=== PATIENT | female | born 1950 | race Caucasian/White ===

== ENCOUNTER 2023-12-17 05:36 | Observation (INO) ==
--- NOTE | 2023-12-06 10:50 | Anesthesiology Consultation ---
Date of Service December 06, 2023 Assessment & Plan (1) Encounter for pre-operative examination: - check BSG and CXR STAT am DOS. - Case discussed in detail with Dr. Steve who advised ordering CXR for DOS and otherwise patient is acceptable to proceed from latent TB standpoint. 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 She denied unintentional weight loss, night sweats, hemoptysis and cough. Chrissy with infection control advised nothing is needed or advised from their standpoint osito-operatively. - cardiology office visit 04/12/23: "...if she goes up stairs she can get winded...atrial fibrillation-paroxysmal in NSR today...s/p ablation with intermittent elevated HR into the 110s...s/p Watchman...continue Crestor..." - Per pension administrator on 12/03/23: No known infectious disease contacts, current infectious disease symptoms in past 10 days or COVID positive test result in the past 30 days. Chart Review Chart Review: Acceptable Risk for Surgery and Patient NOT seen in Pre Admission Testing History Surgery Operation Date: 12/17/23 07:00 Proposed Procedures p Robotic Sacral Colpopexy - Mina Contreras MD s Transvaginal Sling - Mina Contreras MD Height/Weight Height: 5 ft 2 in Weight: 81.647 kg Allergies Allergy/AdvReac Type Severity Reaction Status Date / Time isoniazid Allergy Intermediate ELEV BP Unverified 12/03/23 11:51 pantoprazole Allergy Intermediate GI SYMPTOMS Verified 12/03/23 11:51 codeine Allergy Mild RASH Unverified 12/03/23 11:51 erythromycin base Allergy Mild RASH Unverified 12/03/23 11:51 Medications Home Medications Medication Instructions Recorded Confirmed Last Taken CHOLECALCIFEROL (VITAMIN D-3) 1 tab PO DAILY ##0 01/14/15 12/03/23 Unknown Nitroglycerin (Nitrostat) 0.4 mg sublingual UD PRN Chest 01/16/15 12/03/23 Unknown Pain ##25 aspirin 81 mg tablet,delayed 81 mg PO DAILY 07/06/23 12/03/23 Unknown release citalopram 20 mg tablet 20 mg PO QAM 07/06/23 12/03/23 Unknown diltiazem HCl 180 mg 180 mg PO QAM 07/06/23 12/03/23 Unknown capsule,extended release 24 hr rosuvastatin 5 mg tablet 5 mg PO HS 07/06/23 12/03/23 Unknown sotalol 80 mg tablet 80 mg PO BID 07/06/23 12/03/23 Unknown timolol 0.5 % eye drops 1 drp ophthalmic (eye) BID 07/06/23 12/03/23 Unknown travoprost 0.004 % eye drops 1 drp ophthalmic (eye) QPM 07/06/23 12/03/23 Unknown (Travatan Z) trazodone 50 mg tablet 50 mg PO DAILY 07/06/23 12/03/23 Unknown Fish Oil 1 tab PO QAM 12/03/23 12/03/23 Unknown lansoprazole 30 mg capsule,delayed 30 mg PO DAILY 12/03/23 12/03/23 Unknown release (Prevacid) metformin 1,000 mg tablet 1,000 mg PO QAM 12/03/23 12/03/23 Unknown metformin 500 mg tablet 500 mg PO QDD 12/03/23 12/03/23 Unknown multivitamin 1 tab PO QAM 12/03/23 12/03/23 Unknown Past Medical History Medical History (Updated 12/06/23 @ 10:54 by Magali Desai PA-C) Anxiety Atrial fibrillation and flutter (2014) controlled w/ medication; follows w/ Dr Aguilar yearly Diabetes NIDDM Dyslipidemia GERD (gastroesophageal reflux disease) History of latent tuberculosis (1979) no hx of active TB, had a positive test; re-exposed in , started isoniazid in 1996 and was unable to tolerate treatment; has never had any issues History of postoperative nausea and vomiting History of transesophageal echocardiography (RADHA) x 2 Presence of Watchman left atrial appendage closure device (09/2021) placed 09/2021 for afib, follows w/ Dr Aguilar Prolapse of female pelvic organs Rosacea I contacted patient who denied unintentional weight loss, night sweats, hemoptysis and cough; stated isoniazid was started 1996 but treatment was never completed as patient did not tolerate medication and states she was advised to just have monitoring with PCP. Past Surgical History Surgical History History of arthroscopy of hip History of cardiac radiofrequency ablation (2016) History of total bilateral knee replacement Hx of bilateral cataract extraction Hx of cholecystectomy Hx of colonoscopy Hx of dilation and curettage Hx of eye surgery left, laser Hx of hysterectomy Hx of tonsillectomy Social History Smoking Status: Never smoker Do You Dip or Chew Tobacco: No Hx Alcohol Use: Yes alcohol intake frequency: a few times a week Hx Substance Use: No substance use type: does not use Testing Laboratory Results 12/02/23 WBC: 6.3 H/H: 12/39 PLATELETS: 193,000 SODIUM: 139 POTASSIUM: 4.9 CHLORIDE: 103 CO2: 26 BUN: 15 CREATININE: 0.9 GLUCOSE: 111 Electrocardiogram Date: 12/02/23 NSR, rate 63 bpm Echocardiogram Date: 11/04/22 EF 50-55% Normal segmental LV function [place] closure device well-seated Mild mitral regurgitation
--- NOTE | 2023-12-17 05:25 | History & Physical Report ---
Date of Service December 17, 2023 Assessment & Plan (1) Vaginal vault prolapse, posthysterectomy: Plan: DOMITILA Rectocele Vaginal vault prolapse, posthysterectomy Cystocele, midline We reviewed therapy options including Kegel exercises/Physical therapy vs pe ssary therapy vs surgery. Mrs. Adrian prefers to have surgery. I further reviewed transvaginal surgery (sacrospinous ligament suspension, A&P repair, sling) vs robotic surgery (robotic sacral colpopexy, sling) Risks of surgery including infection, bleeding, injury, pain, mesh exposure, urinary retention were discussed. All questions answered. She would like to proceed with robotic sacral colpopexy, posterior colporrhaphy, sling, and cystoscopy. Patient also desires removal of tubes and ovaries. Informed consent confirmed. Present on Admission?: Yes Admission and Anticipated Discharge Date Admission Date: 12/17/2023 Anticipated date of discharge: 12/18/23 History of Present Illness Chief Complaint: Vaginal vault prolapse, cystocele, rectocele, DOMITILA Primary Care Provider: Sergey Rincon Jayleen Adrian is a 72 year old female P 2 with recurrent prolapse. Jayleen Adrian complains of feeling a bulge starting in December 2022. She also complains of mixed urinary incontinence. She has frequency and urgency every few hours. She awakens 2-3 times a night to void. She has urge incontinence if she can't reach the bathroom in time. She also has DOMITILA with coughing and sneezing. Urinary: Leakage: mixed Has leakage daily Wears pads: yes She has occasional sense of incomplete bladder emptying. Prior/current treatment include: Vaginal hysterectomy, A&P repair, pubovaginal sling with mesh UTI: denies Voiding detail: Daytime frequency: every 2 hours Urgency yes Nocturia:2-3 times Hesitancy no Straining no Hematuria no Postvoid dribbling no Postvoid urgency no Manual reduction no Prolapse: She admits a palpable bulge. Her bulge symptoms have worsened over the last 8 months Prior/ current treatments include vaginal hysterectomy, A&P repair, pubovaginal sling with mesh in 2002 GI: Bowel habits: normal bowel movement She denies fecal incontinence. Prior/ current treatments include: none Allergies Allergy/AdvReac Type Severity Reaction Status Date / Time isoniazid Allergy Intermediate ELEV BP Unverified 12/17/23 06:35 pantoprazole Allergy Intermediate GI SYMPTOMS Verified 12/17/23 06:35 codeine Allergy Mild RASH Unverified 12/17/23 06:35 erythromycin base Allergy Mild RASH Unverified 12/17/23 06:35 Home Medications Medication Instructions Recorded Confirmed Type CHOLECALCIFEROL (VITAMIN D-3) 1 tab PO DAILY ##0 01/14/15 12/17/23 History Nitroglycerin (Nitrostat) 0.4 mg sublingual UD PRN Chest 01/16/15 12/17/23 Rx Pain ##25 aspirin 81 mg tablet,delayed 81 mg PO DAILY 07/06/23 12/17/23 History release citalopram 20 mg tablet (Celexa) 20 mg PO QAM 07/06/23 12/17/23 History diltiazem HCl 180 mg 180 mg PO QAM 07/06/23 12/17/23 History capsule,extended release 24 hr (Cardizem CD) rosuvastatin 5 mg tablet (Crestor) 5 mg PO HS 07/06/23 12/17/23 History sotalol 80 mg tablet (Betapace) 80 mg PO BID 07/06/23 12/17/23 History timolol 0.5 % eye drops 1 drp ophthalmic (eye) BID 07/06/23 12/17/23 History travoprost 0.004 % eye drops 1 drp ophthalmic (eye) QPM 07/06/23 12/17/23 History (Travatan Z) trazodone 50 mg tablet 50 mg PO DAILY 07/06/23 12/17/23 History Fish Oil 1 tab PO QAM 12/03/23 12/17/23 History lansoprazole 30 mg capsule,delayed 30 mg PO DAILY 12/03/23 12/17/23 History release (Prevacid) metformin 1,000 mg tablet 1,000 mg PO QAM 12/03/23 12/17/23 History metformin 500 mg tablet 500 mg PO QDD 12/03/23 12/17/23 History multivitamin 1 tab PO QAM 12/03/23 12/17/23 History Past Med/Surg History Problem List Vaginal vault prolapse, posthysterectomy Encounter for pre-operative examination Urinary incontinence Prolapse of female pelvic organs History of cholecystectomy (Chronic) History of tonsillectomy and adenoidectomy (Chronic) Rosacea (Chronic) Dyslipidemia (Chronic) Atrial flutter (Acute) Generalized anxiety disorder (Chronic) Diaphragmatic hernia (Chronic) GERD (gastroesophageal reflux disease) (Chronic) Chronic leg pain (Chronic) Medical History History of transesophageal echocardiography (RADHA) x 2 Atrial fibrillation and flutter (2014) controlled w/ medication; follows w/ Dr Aguilar yearly Dyslipidemia Prolapse of female pelvic organs Diabetes NIDDM History of postoperative nausea and vomiting Anxiety GERD (gastroesophageal reflux disease) Presence of Watchman left atrial appendage closure device (09/2021) placed 09/2021 for afib, follows w/ Dr Jeff Freedman History of latent tuberculosis (1979) no hx of active TB, had a positive test; re-exposed in , started isoniazid in 1996 and was unable to tolerate treatment; has never had any issues Surgical History Hx of tonsillectomy Hx of dilation and curettage Hx of cholecystectomy Hx of hysterectomy Hx of bilateral cataract extraction Hx of eye surgery left, laser History of arthroscopy of hip History of total bilateral knee replacement History of cardiac radiofrequency ablation (2015) Hx of colonoscopy Social History Smoking Status: Never smoker Second Hand Exposure: No; Do You Dip or Chew Tobacco: No; Tobacco Cessation Education Requested by Patient: No Hx Alcohol Use: Yes Hx Substance Use: No Preferred Language: Northern Irish Communication Ability: Effective Registration Scheduling Specialist Required: No Beliefs That Will Affect Care: None Current Living Situation: Spouse Other Information That Helps Us Care for You: No Feels Safe at Home: Yes Safety Concerns: Feels Safe At This Time Assistive Devices: Contacts and Glasses Review of Systems Review of Systems: All systems reviewed & are unremarkable except as noted in HPI & below Physical Exam Constitutional: WD/WN, vitals as above Eyes: PERRL, conjunctivae normal, anicteric sclerae Neck: trachea midline, no thyromegaly Respiratory: normal respiratory effort Cardiovascular: Rate/Rhythm: regular rate Gastrointestinal (Abdomen): normal bowel sounds, soft, nontender, no hepatosplenomegaly Musculoskeletal: no cyanosis or clubbing, extremities motor strength 5/5 Skin: no rashes, warm and dry Psychiatric: A+Ox3, euthymic affect Code Status & VTE Plan VTE Prophylaxis Plan VTE Prophylaxis will be ordered: Yes
--- NOTE | 2023-12-17 06:45 | XRay Report ---
XR chest 2V PA/lateral HISTORY: 73 years-old Female preop preoperative exam COMPARISON: 02/04/2015 TECHNIQUE: PA and lateral views of the chest FINDINGS: Cardiomediastinal silhouettes are within normal limits. Small hernia. A device projects over the left atrium suggestive of an exclusion device. No pneumothorax, pleural effusion or airspace consolidatio n. Cholecystectomy. Bones appear intact. IMPRESSION: No acute process. ACT 112: Negative or not required by law. The above report was generated using voice recognition software. It may contain grammatical, syntax o r spelling errors. Electronically signed by: Patrick Disla M.D. 12/17/2023 6:43 AM
[2023-12-17] MEDS ORDERED: fentaNYL citrate PF 100 MCG/2 ML VIAL ONE (06:47)
[2023-12-17] MEDS ORDERED: SUGAMMADEX SODIUM 200 MG/2 ML VIAL IV ONE (06:47)
[2023-12-17] MEDS ORDERED: MIDAZOLAM HCL 1 MG/ML 2ML VIAL ONE (06:48)
[2023-12-17] MEDS ORDERED: LIDOCAINE 2% 2 ML VIAL/AMP(20MG/ML) INFIL ONE (06:49)
[2023-12-17] MEDS ORDERED: ROCURONIUM BROMIDE 10 MG/ML 5 ML VIAL IV ONE ×2 (06:49→08:03)
[2023-12-17] MEDS ORDERED: DEXAMETHASONE SOD INJ 4 MG/ML VIAL ONE (06:49)
[2023-12-17] MEDS ORDERED: diphenhydrAMINE 50 MG/ML VIAL ONE (06:49)
[2023-12-17] MEDS ORDERED: KETOROLAC 30 MG/ML VIAL ONE (06:49)
[2023-12-17] MEDS ORDERED: PROPOFOL IV EMULSION 10 MG/ML 20 ML VIAL IV ONE (06:49)
[2023-12-17] MEDS ORDERED: ONDANSETRON INJ 2 MG/ML 2 ML VIAL ONE (06:49)
[2023-12-17] MEDS ORDERED: ACETAMINOPHEN 1000 MG/100 ML IV IV ONE (06:50)
[2023-12-17] MEDS: LR 15ML/HR IV SCH (06:55)
[2023-12-17] MEDS: metroNIDAZOLE 500 MG/100 ML BAG IV SCH (07:04)
[2023-12-17] MEDS: ceFAZolin 2000MG 2,000 MG/15 ML SYR IV SCH (07:30)
[2023-12-17] MEDS ORDERED: ePHEDrine sulfate 50 MG/5 ML SYR ONE (08:07)
[2023-12-17] MEDS ORDERED: HYDROmorphone INJ 1 MG/ML SYRINGE IV PRN (08:45)
[2023-12-17] MEDS ORDERED: fentaNYL citrate PF 100 MCG/2 ML VIAL IV PRN (08:45)
[2023-12-17] MEDS ORDERED: ONDANSETRON INJ 2 MG/ML 2 ML VIAL IV PRN ×2 (08:45→10:05)
[2023-12-17] MEDS ORDERED: ATROPINE SULFATE 0.1 MG/ML 10ML SYR IV PRN (08:45)
[2023-12-17] MEDS ORDERED: PROMETHAZINE HCL 6.25 MG in SODIUM CHLORIDE 0.9% 50 ML IV PRN (08:45)
[2023-12-17] MEDS ORDERED: ePHEDrine sulfate 50 MG/ML AMP IV PRN (08:45)
[2023-12-17] MEDS: BUPIVACAINE 0.5 % 5 MG/1 ML MPF 30ML VIAL ONE (09:51)
[2023-12-17] MEDS: FLOSEAL HEMOSTATIC MATRIX 10ML TOP ONE (09:51)
[2023-12-17] MEDS: PREMARIN VAG CRM 14 APPLN/30 GM TUBE ONE (09:52)
[2023-12-17] MEDS ORDERED: IBUPROFEN 600 MG TAB PO PRN (10:05)
[2023-12-17] MEDS: LIDOCAINE 1%/EPINEPHRINE 1:100,000 50 ML VIAL ONE (10:11)
--- NOTE | 2023-12-17 10:24 | Operative Report ---
Post Operative Report Pre & Post Diagnosis Operation Date: 12/17/23 07:30 Pre-Op Diagnosis: Vaginal Vault Prolapse, Cystocele Lateral, Rectocele, Post-Op Diagnosis: Vagina Vault Prolapse, Cystocele Lateral, Rectocele, I identified the patient and participated in the time-out.: Yes Procedure Operation Date: 12/17/23 07:30 Actual Procedures p Robotic Assisted Sacral Colpopexy, Cystoscopy, Removal of bilateral tubes and bilatera ovaries(Not Applicable) - Mina Contreras MD Surgeon Mina Contreras MD Build Master Linda Morrissey PA-C Estimated Blood Loss 75 Findings Consistent with Post-Op Diagnosis grade 2 cystocele, vaginal vault prolapse, rectocele. Atrophic ovaries. Cystoscopy with trabeculations, no lesions, excellent efflux of ureters bilaterally. Fluids crystalloid Specimens tubes and ovaries bilaterally Drains none Anesthesia Type General Complications none Disposition Accompanied Patient To Recovery: Yes Disposition: Recovery Room Indications Recurrent and symptomatic vaginal prolapse Description of Procedure The patient was identified and the procedure verified. General anesthesia was given by anesthesia service The patient was placed in dorsal lithotomy position, prepped and draped in the usual manner. She was identified, and her procedure was also identified. A Brambila catheter was placed into the bladder and the bladder was drained. A bulb syringe attached to a Hulka tenaculum was placed in the vagina. At the umbilicus, an 8 mm incision was made. An 8 mm robotic trocar with optiview was advanced through the incision, fascia, peritoneum into the abdominal cavity under direct view.. CO2 gas was insufflated into the abdomen and inspection revealed no adhesions. On the left two 8 mm trocars were placed under direct visualization. On the right two 8 mm trocars were placed under direct visualization. The patient was placed in Trendelenburg position to allow the small bowel to retract out of the pelvis. The robot was docked. The ureters were identified bilaterally. The ovaries and tubes were well visualized. The IP ligaments were grasped, vessel sealed and transected bilaterally. The tubes and ovaries were sent to pathology as specimen. Hemostasis was confirmed. The bladder was dissected off the anterior vaginal wall. The rectum was dissected off the posterior vaginal wall. The peritoneum over the sacral promontory was incised and extended along the right osito-colic gutter with excellent visualization of the right ureter and rectum. Mild oozing over the sacrum was controlled with Artis-seal. The Y mesh was then secured to the anterior and posterior vaginal whitehead with 2-0 V-Lock suture anteriorly and posteriorly. The tail end of the graft was secured to the anterior longitudinal ligament below the sacral promontory with 2 interrupted sutures of 2-0 CV-0. The excess mesh was trimmed and removed. The peritoneum was closed over the mesh with 2-0 V-Lock suture in a running fashion. Excellent hemostasis was confirmed. The robot was undocked. The CO2 gas was a llowed to recede and the trocars were removed under direct visualization. The skin incision were closed with 4-0 Monocryl in a subcuticular fashion and dressed with surgical glue. Attention was focused vaginally. Excellent support of the anterior, apical, and posterior vaginal whitehead was confirmed. The Brambila catheter was then removed from the bladder. The urethra and the bladder was scoped with 250 ml of irrigation fluid. Both were within normal limits. Excellent efflux of ureters were demonstrated bilaterally. The bladder was filled with 350 ml of irrigation fluid, the scope was removed. Crede maneuver was performed and and DOMITILA was not demonstrated. The Brambila catheter was placed, estrogen cream applied to the vagina, and vaginal packing was applied. All sponge lap and needle counts were correct. The patient tolerated the procedure well and left the Operating Room in good condition. I attest to the content of the Intraoperative Record and any orders documented therein. Any exceptions are noted below. No qualified resident was available. Linda Morrissey PA-C was required to assist during the procedure for patient positioning, draping, robot docking and instrument exchange, retraction, suction and irrigation, and wound closure.
--- OUTSIDE RECORDS SUMMARY | 2023-12-17 10:47 | External Medical Summary ---
Author Name Unknown Address Unknown Organization [id number] [address] [place] [id number] Laboratory Report Ordering Provider Test Date Status BHUPENDRA REDMAN 12/02/2023 10:45:51 Final Observation Date Value Abnormality Reference (Units ) Status BUN 12/02/2023 10:45:51 15 6-20 (mg/dL) Final Creatinine 12/02/2023 10:45:51 0.9 0.5-1.0 (mg/dL) Final Glomerular filtration rate/1.73 sq M.predicted [Volume Rate/Area] in Serum, Plasma or Blood by Creatinine-based formula (CKD-EPI) 12/02/2023 10:45:51 65 >=60 (mL/min) Final eGFR is calculated based on the CKD-EPI 2020 equation. Sodium 12/02/2023 10:45:51 139 135-146 (m mol/L) Final Potassium 12/02/2023 10:45:51 4.9 3.5-5.1 (m mol/L) Final Cl 12/02/2023 10:45:51 103 98-107 (mm ol/L) Final CO2 12/02/2023 10:45:51 26 22-32 (mmo l/L) Final Anion gap 12/02/2023 10:45:51 10 7-15 (mmol /L) Final Glucose 12/02/2023 10:45:51 111 70-120 (mg /dL) Final Calcium 12/02/2023 10:45:51 9.6 8.4-10.2 ( mg/dL) Final Performing Location [facility] [address] [place] [id number]
--- OUTSIDE RECORDS SUMMARY | 2023-12-17 10:47 | External Medical Summary | Summary of Care ---
Author Name Unknown Organization [facility] Address [address] [facility] [place] [address] Phone [phone] Care Team Providers Care Director Of Strategic Communications Name Role Phone Jodi Perla PA-C Primary Care Provid er Encounter Details Date Type Department Care Team (Late st Contact Info) Description 12/02/2023 Orders Only Urogynecology [facility] [address] [place] [address] Linda Morrissey PA-C [address] [place] [address] Preop testing* Allergies Active Allergy Reactions Criticality Noted Date Comments Erythromycin 11/18/1999 hives Isoniazid 11/18/1999 hypertension Morphine And Codeine 11/18/1999 itching Pantoprazole Sodium Sesquihydrate Other (Please comment) Medium 05/12/2007 Elevated BP documented as of this encounter (statuses as of 12/02/2023) Medications Medication Sig Dispensed Refills Start Date End Date Status MULTIVITAL PO TABS 1 daily Active FISH OIL CONCENTRATE 1000 MG PO CAPS 1200 mg daily Active VITAMIN D 1000 UNIT PO CAPSIndications:Disor get of bone and cartilage 1 capsule daily 0 07/09/2010 Active CALCIUM 600/VITAMIN D 600-400 MG-UNIT PO TABS 1 a day Active nitroglycerin (NITROSTAT) 0.4 MG SUBLIndications:Typic al atrial flutter (HCC) Place 1 Tab under the tongue as needed for Pain, Chest. May repeat 3 times. If chest pain continues, call 911. 25 Tab 5 01/23/2015 Active apixaban (ELIQUIS) 5 MG TabletIndications:Typ ical atrial flutter (HCC) Take 1 Tab by mouth 2 times a day. 180 Tab 1 01/23/2015 Active Additional Information Patient not taking.Reported on 09/23/[address] (PREVACID) 30 MG CPDR Take 1 Cap by mouth daily. 90 Cap 1 01/29/2015 Active sotalol (BETAPACE) 80 MG TabletIndications:Par oxysmal atrial fibrillation (HCC) Take 1 Tab by mouth 2 times a day. 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 30 Tab 0 02/27/2015 Active Additional Information Patient not taking.Reported on 09/23/2023 Aspirin 81 MG Oral Tablet Chewable (Aspirin 81) Take 1 Tablet by mouth in the morning. Active metFORMIN HCl 500 MG Oral Tablet (Glucophage) Take 1 Tablet by mouth 2 times a day with morning and evening meals. 1 tab with breakfast, 2 tabs with dinner Active Rosuvastatin Calcium 5 MG Oral Tablet (Crestor) Take 1 Tablet by mouth in the morning. Active dilTIAZem HCl ER Coated Beads 180 MG Oral Capsule Extended Release 24 Hour (Cardizem CD) Take 1 Capsule by mouth in the morning. Active Citalopram Hydrobromide 20 MG Oral Tablet (CeleXA) Take 1 Tablet by mouth in the morning. Active traZODone HCl 50 MG Oral Tablet (Desyrel) Take 1 Tablet by mouth at bedtime. Active Magnesium 250 MG Oral Tablet Take 1 Tablet by mouth in the morning. Active Travoprost (GERA Free) 0.004 % Ophthalmic Solution (Travatan Z) 1 Drop at bedtime. Active Timolol Maleate (Once-Daily) 0.5 % Ophthalmic Solution (Istalol) 1 Drop in the morning. Active documented as of this encounter (statuses as of 12/02/2023) Active Problems Problem Noted Date Diagnosed Date Paroxysmal atrial fibrillation 02/06/2015 Advance directive in chart 06/07/2013 Slow transit constipation 08/09/2012 Anxiety state 01/20/2012 Muscle cramp, nocturnal 07/15/2011 Rosacea 01/14/2011 Dyslipidemia, goal LDL below 130 06/04/2009 Impaired fasting glucose 12/12/2007 Urge incontinence 02/17/2007 Female stress incontinence 08/05/2006 ADVANCE DIRECTIVE INFORMATION 05/06/2005 Overview: Yes, Patient instructed to provide copy of advance directive for provider to review and to be scanned into Electronic Medical Record BENIGN PARXYSMAL VERTIGO 08/10/2002 Esophageal reflux Abnormal results of liver function studies Disorder of bone and cartilage Rectocele documented as of this encounter (statuses as of 12/02/2023) Resolved Problems Problem Noted Date Diagnosed Date Resolved Date Typical atrial flutter 01/23/201502/06 Dyslipidemia, goal to be determined 02/21/2009 06/04/2009 Overview: Per Lipid Taxonomy. Hematuria 08/30/2006 06/21/2007 Overview: ICD-10 update of inactive term Urge incontinence 08/05/2006 06/21/2007 Urgency of urination 08/05/2006 008 Urinary frequency 08/05/2006 05/12/2007 Urinary frequency 12/28/2002 05/12/2007 Diaphragmatic hernia 008 GENERALIZED ANXIETY DIS 10/2007 Nonspecific reaction to tube rculin skin test without active tuberculosis 06/21/2007 Overview: ICD-10 update of inactive term Peptic ulcer 06/21/2007 Dysmenorrhea 05/12/2007 PLANTAR FIBROMATOSIS 008 Family history of colon cancer 06/21/2007 History of peptic ulcer disease 06/21/2007 Overview: ICD-10 update of inactive term Mixed dyslipidemia 9 Overview: Per Lipid Taxonomy. Other iron deficiency anemia 11/16/2008 Overview: ICD-10 update of inactive term documented as of this encounter (statuses as of 12/02/2023) Immunizations Name Administration Dates Next Due COVID-19 mRNA, LNP-s, No Pre serve, 2-Dose Series (Modlar) 10/27/2021 COVID-19, MRNA-LNP, 23-24, P F, 30 MCG/0.3 mL, 12 YRS AND ABOVE, IM (PFIZER-Comirnaty) 12/24/2022 H1N1 2009 Influenza, IM 03/20/2009 Season Influenza, Quad, PF, Adjuvanted, 65+ Yrs, IM (FLUAD) 12/24/2022 Seasonal Influenza, Quadriva lent Hd (Fluzone Hd) 12/18/2021 Seasonal Influenza, Trivalen t, (IIV3), with Preserv, (Fluzone) 01/16/2015,12/20/2013,01/03/2013,2011,01/14/2011,01/01/2010,01/13/2009,1 03/21/2005 TDAP, Age 7 and older, IM (Adacel) 11/10/2007 Varicella Zoster Vaccine (Adult) 10/02/2013 documented as of this encounter Social History Tobacco Use Types Packs/Day Years Used Date Smoking Tobacco: Never Smokeless Tobacco: Never Alcohol Use Standard Drinks/Week Comments Yes 0 (1 standard drink = 0.6 oz pur e alcohol) occ.wine Sex and Gender Information Value Date Recorded Sex Assigned at Not on file Gender Identity Not on file Sexual Orientation Not on file Job Start Date Occupation Industry Not on file Not on file Not on file documented as of this encounter Plan of Treatment Upcoming Encounters Date Type Department Care Team (Late st Contact Info) Description 12/29/2023 8:00 AM EDT Telemedicine Urogynecology [facility] [address] [place] [address] Mina Contreras MD [address] [place] [address] 02/02/2024 11:20 AM EST Office Visit Urogynecology [facility] [address] [place] [address] Mina Contreras MD [address] [place] [address] Scheduled Orders Name Type Priority Associated Diagnoses Orde r Schedule EKG EKG Routine Preop testing 1 Occurrences starting 12/02/2023 until 01/01/2024 Health Maintenance Due Date Last Done Comments Cologuard 11/21/1996 Colonoscopy 11/21/1996 Sigmoidoscopy 11/21/1996 Colorectal Cancer Screening 11/02/2003 Fecal Occult Blood Test 11/02/2003 11/02/19 03, 11/23/2001, 04/29/2000 Zoster Vaccines (2 of 3) 11/27/2013 10/02/2013 Depression Screening 07/04/2015 07/03/2014 Mammogram 01/26/2016 01/25/2015, 09/13, 08/09/2012, Additional history exists Pneumococcal Vaccine: 65+ Years (1 of 1 - PCV) 11/21/2016 DTap/Tdap Vaccines (2 - Td or Tdap) 11/09/2017 11/10/2007, 09/04/1997 DXA Scan 09/10/2019 09/09/2009, 04/0 09/2007, 05/29/2005 Lipid Panel 01/09/2020 01/08/2015, 06/14, 02/26/2014, Additional history exists COVID-19 Vaccine ( season) 2023 12/24/2022, 10/27/2021, 06/13/2020, Additional history exists Influenza Vaccine (FLU shot) (#1) 2023 12/24/2022, 12/18/2021, 12/21/2018, Additional history exists Hepatitis B Vaccine Completed 03/06/1998, 10/03/1997, 09/04/1997 HPV (Gardasil) Vaccine Aged Out No lo nger eligible based on patient's age to complete this topic MENINGOCOCCAL (MENACTRA/MENVEO) Aged Out No longer eligible based on patient's age to complete this topic documented as of this encounter Medical Devices Not on filedocumented as of this encounter Visit Diagnoses Diagnosis Preop testing- Primary Preoperative examination, unspecified documented in this encounter Care Teams Director Of Strategic Communications Relationship Specialty Start Date End Date Jodi Perla PA-C [address] [place], [place] [address] [address] PCP - General Physician Shock Absorption Floor Layer 05/23/23 documented as of this encounter
--- OUTSIDE RECORDS SUMMARY | 2023-12-17 10:47 | External Medical Summary | Summary of Care ---
Author Name Unknown Organization [facility] Address [address] [place] [address] Phone [phone] Care Team Providers Care Guardian Ad Litem Name Role Phone Jodi Perla PA-C Primary Care Provid er Reason for Visit * Reason Onset Date Comments Referral 09/25/2023 pt called on sat 7/12 to schedule the order her doctor placed. pt stated this shourd be for a 3-hour surgery and not just to connect with urology. she will call back on 09/26 Encounter Details Date Type Department Care Team (Late st Contact Info) Description 09/25/2023 Telephone Dermatology [facility] [address] [place] [address] Services, Scheduling [address] [place] [address] Referral (pt called on sat 7/12 to schedul... Allergies Active Allergy Reactions Criticality Noted Date Comments Erythromycin 11/18/1999 hives Isoniazid 11/18/1999 hypertension Morphine And Codeine 11/18/1999 itching Pantoprazole Sodium Sesquihydrate Other (Please comment) Medium 05/12/2007 Elevated BP documented as of this encounter (statuses as of 09/25/2023) Medications Medication Sig Dispensed Refills Start Date [...] as of this encounter (statuses as of 09/25/2023) Active Problems Problem Noted Date Diagnosed Date [...] as of this encounter (statuses as of 09/25/2023) Resolved Problems Problem Noted Date Diagnosed Date [...] as of this encounter (statuses as of 09/25/2023) Immunizations Name Administration Dates Next Due COVID-19 mRNA, LNP-s, No Pre serve, 2-Dose Series (Pfizer) 10/27/2021 COVID-19, MRNA-LNP, 23-24, P F, 30 MCG/0.3 mL, 12 YRS AND ABOVE, IM (PFIZER-Comirnaty) 12/24/2022 H1N1 2009 Influenza, IM 03/20/2009 Season Influenza, Quad, PF, Adjuvanted, 65+ Yrs, IM (FLUAD) 12/24/2022 Seasonal Influenza, Quadriva lent Hd (Fluzone Hd) 12/18/2021 Seasonal Influenza, Split, I IV3, With Preserve, Inj 01/16/2015,12/20/2013,01/03/2013,2011,01/14/2011,01/01/2010,01/13/2009,1 03/21/2005 TDAP, Age 7 and older, [...] on file documented as of this encounter Miscellaneous Notes * Telephone Encounter - Romario Oliveira OSA - 09/25/2023 12:14 PM EDT cali Kimball called on sat 09/23 to schedule the order her doctor placed. pt stated this shourd be for a 3-hour surgery and not just to connect with urology. she will call back on mon 09/26 Pt can be reached at [phone] Thank you, CRUZITO Ballard documented in this encounter Plan of Treatment Health Maintenance Due Date Last Done Comments Cologuard 11/21/1996 Colonoscopy 11/21/1996 Sigmoidoscopy 11/21/1996 Colorectal Cancer Screening 11/02/2003 Fecal Occult Blood Test 11/02/2003 11/02/19 03, 11/23/2001, 04/29/2000 Zoster Vaccines (2 of 3) 11/27/2013 10/02/2013 Depression Screening 07/04/2015 07/03/2014 Mammogram 01/26/2016 01/25/2015, 09/13, 08/09/2012, Additional history exists Pneumococcal Vaccine: 65+ Years (1 of 1 - PCV) 11/21/2016 DTaP,Tdap,and Td Vaccines (2 - Td or Tdap) 11/09/2017 11/10/2007, 09/04/1997 DXA Scan 09/10/2019 09/09/2009, 09/2007, 05/29/2005 Lipid Panel 01/09/2020 01/08/2015, 06/14, [...] Not on filedocumented as of this encounter Care Teams Guardian Ad Litem Relationship Specialty Start Date End Date Jodi Perla PA-C [address] [place] [address] Drive [place] [address] PCP - General Physician Electrical Systems Drafter 05/23/23 documented as of this encounter
--- OUTSIDE RECORDS SUMMARY | 2023-12-17 10:47 | External Medical Summary | Summary of Care ---
Author Name Unknown Organization [facility] Address [address] [facility] [place] [address] Phone [phone] Care Team Providers Care Silicator Name Role Phone Jodi Perla PA-C Primary Care Provid er Reason for Visit * Reason Comments Outpatient Testing Encounter Details Date Type Department Care Team (Late st Contact Info) Description 12/02/2023 10:30 AM EDT Laboratory Laboratory, [facility] [id number] [facility] [address] [facility] [place] [address] Pre-op testing Allergies Active Allergy Reactions Criticality Noted Date [...] 05/12/2007 Diaphragmatic hernia 008 GENERALIZED ANXIETY DIS 0410/2007 Nonspecific reaction to tube rculin skin test [...] Description 12/29/2023 8:00 AM EDT Telemedicine [facility] [address] [place] [address] Mina Contreras MD [address] [place] [address] 02/02/2024 11:20 AM EST Office [facility] [address] [place] [address] Mina Contreras MD [address] [place] [address] Pending Results Name Type Priority Associated Diagnoses Date /Time CBC Lab Routine Pre-op testing 12/02/2023 10:45 AM EDT BASIC METABOLIC PANEL Lab Routine Pre-op testing 12/02/2023 10:45 AM EDT Health Maintenance Due Date Last Done Comments [...] 11/09/2017 11/10/2007, 09/04/1997 DXA Scan 09/10/2019 09/09/2009, 04/09/2007, 05/29/2005 Lipid Panel 01/09/2020 01/08/2015, 2 10/2014, 02/26/2014, Additional history exists COVID-19 Vaccine ( [...] as of this encounter Visit Diagnoses Diagnosis Pre-op testing Preoperative examination, unspecified documented in this encounter Care Teams Silicator Relationship Specialty Start Date End Date Jodi Perla PA-C [address] [place], [place] [address] [address] PCP - General Physician Pocket Creaser 05/23/23 documented as of this encounter
--- OUTSIDE RECORDS SUMMARY | 2023-12-17 10:47 | External Medical Summary | Summary of Care ---
Author Name Unknown Organization [facility] Address [address] [facility] [place] [address] Phone [phone] Care Team Providers Care Clam Grader Name Role Phone Jodi Perla PA-C Primary Care Provid er Reason for Visit * Reason Onset Date Comments Referral 09/29/2023 Encounter Details Date Type Department Care Team (Late st Contact Info) Description 09/29/2023 Telephone Urology Samia Hanks [address] [place] [address] [place] Braun MD [address] [place] [address] Referral Allergies Active Allergy Reactions Criticality Noted Date Comments Erythromycin 11/18/1999 hives Isoniazid 11/18/1999 hypertension Morphine And Codeine 11/18/1999 itching Pantoprazole Sodium Sesquihydrate Other (Please comment) Medium 05/12/2007 Elevated BP documented as of this encounter (statuses as of 09/29/2023) Medications Medication Sig Dispensed Refills Start Date [...] as of this encounter (statuses as of 09/29/2023) Active Problems Problem Noted Date Diagnosed Date [...] as of this encounter (statuses as of 09/29/2023) Resolved Problems Problem Noted Date Diagnosed Date [...] as of this encounter (statuses as of 09/29/2023) Immunizations Name Administration Dates Next Due COVID-19 [...] encounter Miscellaneous Notes * Telephone Encounter - Sonia Gutierrez OSA - 09/29/2023 12:31 PM EDT LMOM for patient to call back to see if appointment is needed for urology? Patient was seen by Uro/Maintenance Associate, not sure if she needed to be seen by urology as well? documented in this encounter Plan of Treatment [...] filedocumented as of this encounter Care Teams Clam Grader Relationship Specialty Start Date End Date Jodi Perla PA-C [address] [place] [address] PCP - General Physician Online Media Director 05/23/23 documented as of this encounter
--- OUTSIDE RECORDS SUMMARY | 2023-12-17 10:47 | External Medical Summary ---
Author Name Unknown Address Unknown Organization [facility] [address] [place] [address] Laboratory Report Ordering Provider Test Date Status BHUPENDRA REDMAN 12/02/2023 10:45:51 Final Observation Date Value Abnormality Reference (Units ) Status WBC, Total 12/02/2023 10:45:51 6.33 4.00-10.8 0 (K/uL) Final RBC 12/02/2023 10:45:51 4.50 3.85-5.15 (M/uL) Final Hemoglobin 12/02/2023 10:45:51 12.9 12.0-15.3 (g/dL) Final HCT 12/02/2023 10:45:51 39.7 36.0-45.2 (%) Final MCV 12/02/2023 10:45:51 88.2 81.5-97.5 (fL) Final MCH 12/02/2023 10:45:51 28.7 27.0-34.0 (pg) Final MCHC 12/02/2023 10:45:51 32.5 32.0-36.0 (g/dL) Final RDW 12/02/2023 10:45:51 14.1 11.5-15.5 (%) Final Platelets 12/02/2023 10:45:51 193 140-400 (K /uL) Final MPV 12/02/2023 10:45:51 11.0 6.6-11.1 ( fL) Final Performing Location [facility] [address] [place] [address]
--- OUTSIDE RECORDS SUMMARY | 2023-12-17 10:47 | External Medical Summary | Summary of Care ---
Author Name Unknown Organization [facility] [address] [place] [address] Phone [phone] Care Team Providers Care Senior Infrastructure Engineer Name Role Phone Jodi Perla PA-C Primary Care Provid er Reason for Visit * Reason Onset Date Comments Advice 12/02/2023 Encounter Details Date Type Department Care Team (Late st Contact Info) Description 12/02/2023 Telephone Urogynecology [facility] [address] [place], [place] [phone] Mina Contreras MD [address] [place] [address] Advice Allergies Active Allergy Reactions Criticality Noted Date [...] encounter Miscellaneous Notes * Telephone Encounter - Tamar Young LPN - 12/02/2023 10:28 AM EDT Received call from Scheduling with pt at lab and requesting why her lab work was not ordered for her surgery. Verified surgery date and will order pre op testing. documented in this encounter Plan of Treatment Upcoming Encounters Date Type Department Care Team (Late st Contact Info) Description 12/29/2023 8:00 AM EDT Telemedicine Urogynecology [facility] [address] [place] [address] Mina Contreras MD [address] [place] [address] 02/02/2024 11:20 AM EST [facility] [address] [place] [address] Mnia Contreras MD [address] [place] [address] Pending Results Name Type Priority Associated Diagnoses Date /Time CBC Lab Routine Pre-op testing 12/02/2023 10:45 AM EDT BASIC METABOLIC PANEL Lab Routine Pre-op testing 12/02/2023 10:45 AM EDT Scheduled Orders Name Type Priority Associated Diagnoses Orde r Schedule CBC Lab Routine Pre-op testing Expected: 12/02/2023 (Approximate), Expires: 12/01/2024 BASIC METABOLIC PANEL Lab Routine Pre-op testing Expected: 12/02/2023 (Approximate), Expires: 12/01/2024 EKG COMPLETE (TRACING AND INTERP) EKG Routine Pre-op testing Expected: 12/02/2023 (Approximate), Expires: 12/01/2024 Health Maintenance Due Date Last Done Comments [...] 11/09/2017 11/10/2007, 09/04/1997 DXA Scan 09/10/2019 09/09/2009, 0409/2007, 05/29/2005 Lipid Panel 01/09/2020 01/08/2015, 06/14, 02/26/2014, [...] of this encounter Visit Diagnoses Diagnosis Pre-op testing- Primary Preoperative examination, unspecified documented in this encounter Care Teams Senior Infrastructure Engineer Relationship Specialty Start Date End Date Jodi Perla PA-C [address] [place] [address] PCP - General Physician Asbestos Abatement Worker 05/23/23 documented as of this encounter
--- OUTSIDE RECORDS SUMMARY | 2023-12-17 10:47 | External Medical Summary | Summary of Care ---
Author Name Unknown Organization [facility] Address [address] [place] [address] Phone [phone] Care Team Providers Care Nuclear Reactor Engineer Name Role Phone Jodi Perla PA-C [...] st Contact Info) Description 09/25/[address] [facility] [address] [place] [address] Services, Scheduling [address] [place] [address] Referral (pt called on sat 7/12 to schedul... Allergies Active Allergy Reactions Criticality Noted Date Comments Erythromycin 11/18/1999 hives Isoniazid 11/18/1999 hypertension Morphine And Codeine 11/18/1999 itching Pantoprazole Sodium Sesquihydrate Other (Please comment) Medium 05/12/2007 Elevated BP documented as of this encounter (statuses as of 09/27/2023) Medications Medication Sig Dispensed Refills Start Date [...] as of this encounter (statuses as of 09/27/2023) Active Problems Problem Noted Date Diagnosed Date [...] as of this encounter (statuses as of 09/27/2023) Resolved Problems Problem Noted Date Diagnosed Date [...] as of this encounter (statuses as of 09/27/2023) Immunizations Name Administration Dates Next Due COVID-19 mRNA, LNP-s, No Pre serve, 2-Dose Series (Pfizer) 10/27/2021 COVID-19, MRNA-LNP, 23-24, P F, 30 MCG/0.3 mL, 12 YRS AND ABOVE, IM (PFIZER-Comirnaty) 12/24/2022 H1N1 2009 Influenza, IM 03/20/2009 Hepatitis B, 20+ yrs 03/06/1998,10/03/1997,09/04 Influenza, Whole Virus 02/25/2000 Season Influenza, Quad, PF, Adjuvanted, 65+ Yrs, IM (FLUAD) 12/24/2022 Seasonal Influenza, Quadriva lent Hd (Fluzone Hd) 12/18/2021 Seasonal Influenza, Split, I IV3, With Preserve, Inj 01/16/2015,12/20/2013,01/03/2013,01/19,01/14/2011,01/01/2010,01/13/2009 ,01/19/2006,01/23/2005,02/06/2003,12/14,02/08/2001 01/04/2003 TD - Tetanus/Diptheria (ADULT) 09/04/1997 TDAP, Age 7 and older, IM (Adacel) [...] encounter Miscellaneous Notes * Telephone Encounter - Suzi Denis OSA - 09/27/2023 8:28 AM EDT Pt was given my number and left message to schedule surgery. I do not schedule for , but for the [place] physicians. Please route to appropriate scheduling department, thank you. * Telephone Encounter - Romario Oliveira OSA - 09/25/2023 12:14 PM EDT Jigar pt called on sat 09/23 to schedule the order her doctor placed. pt stated this shourd be for a 3-hour surgery and not just to connect with urology. she will call back on mon 09/26 Pt can be reached at [phone] Thank you, CRUZITO Ballard documented in this [...] 10/2014, 02/26/2014, Additional history exists COVID-19 Vaccine (2022- season) 2023 12/24/2022, 10/27/2021, 06/13/2020, Additional history [...] filedocumented as of this encounter Care Teams Nuclear Reactor Engineer Relationship Specialty Start Date End Date Jodi Perla PA-C [address] [place] [address] PCP - General Physician Bilingual Loan Processor 05/23/23 documented as of this encounter
--- OUTSIDE RECORDS SUMMARY | 2023-12-17 10:48 | External Medical Summary | Summary of Care ---
Author Name Unknown Organization [facility] Address [address] [facility] [facility] [place] [address] Phone [phone] Care Team Providers Care Child Care Associate Name Role Phone Jodi Perla PA-C Primary Care Provid er Reason for Visit * Reason Comments NEW PATIENT Encounter Details Date Type Department Care Team (Late st Contact Info) Description 09/23/2023 11:25 AM EDT Office Visit Urogynecology Henrry Chin [address] [place] [address] Mina Contreras MD [address] [place] [address] Nurse Sara Chin [address] [place] [address] Mixed incontinence urge and stress*; Rectocele; Vaginal vault prolapse, posthysterectomy; Cystocele, midline Allergies Active Allergy Reactions Criticality Noted Date Comments Erythromycin 11/18/1999 hives Isoniazid 11/18/1999 hypertension Morphine And Codeine 11/18/1999 itching Pantoprazole Sodium Sesquihydrate Other (Please comment) Medium 05/12/2007 Elevated BP documented as of this encounter (statuses as of 09/23/2023) Medications Medication Sig Dispensed Refills Start Date [...] as of this encounter (statuses as of 09/23/2023) Active Problems Problem Noted Date Diagnosed Date [...] as of this encounter (statuses as of 09/23/2023) Resolved Problems Problem Noted Date Diagnosed Date [...] as of this encounter (statuses as of 09/23/2023) Immunizations Name Administration Dates Next Due COVID-19 mRNA, LNP-s, No Pre serve, 2-Dose Series (A-STAR) 10/27/2021 COVID-19, MRNA-LNP, 23-24, P F, 30 [...] on file documented as of this encounter Progress Notes * Mina Contreras MD - 09/23/2023 12:19 PM EDT Urogynecology Surgical Checklist Patient Name: Jayleen Adrian Date of : 1950 Surgery Date: next Physician: Diane Airplane Pilot Helper Needed: Yes Location: [facility] Admission Type: 23 Hour Observation Anesthesia: General Anesthesia Consult Needed: No Pre-Operative Labs/Testing: CBC, BMP, and ECG Pre-Surgical Interview (PATS): Phone Consent Done: No Medicaid Hysterectomy Consent Done: No COVID-19 Testing Date: n/a Surgery Cling (Education) Given to Patient: No Anticoagulation: Yes (aspirin only) Stopped Anticoagulation: Yes, 5 days prior to surgery Coagulation Clinic: No Medical Clearance Needed: No Cardiac Clearance Needed: No [employer] Teaching Complete: No Special Requests (case length variation from average, vendor, equipment): Y mesh, Solyx sling Post-Operative Follow-Up: Telemed visit in 2 weeks and Appointment in 6 weeks Post-Operative Restrictions/Time Off: 6 weeks Procedures (CPT code): 93910 - Mid urethral sling (polypropylene mesh) 53809 - Posterior colporrhaphy [id number] - Robotic sacral colpopexy Diagnoses (ICD-10 code): N39.3 - Stress incontinence N81.12 - Cystocele, lateral N81.6 - Rectocele N99.3 - Vesicovaginal prolapse, post-hysterectomy * Mina Contreras MD - 09/23/2023 11:40 AM EDT Jayleen Adrian is a 72 year old female P 2 here for evaluation of recurrent prolapse. Referred by Self. Jayleen Adrian complains of feeling a bulge starting in December 2022. She also complains of mixed urinary incontinence. She has frequency and urgency every few hours. She awakens 2-3 times a night to void. She has urge incontinence if she can't reach the bathroom in time. She also has DOMITILA with coughing and sneezing. Urinary: Leakage: mixed Has leakage daily Wears pads: yes She has occasional sense of incomplete bladder emptying. Prior/current treatment include: Vaginal hysterectomy, A&P repair, pubovaginal sling with mesh UTI: denies Voiding detail: Daytime frequency: every 2 hours Urgency yes Nocturia:2-3 times Hesitancy no Straining no Hematuria no Postvoid dribbling no Postvoid urgency no Manual reduction no Prolapse: She admits a palpable bulge. Her bulge symptoms have worsened over the last 8 months Prior/ current treatments include vaginal hysterectomy, A&P repair, pubovaginal sling with meshin 2002 GI: Bowel habits: normal bowel movement She denies fecal incontinence. Prior/ current treatments include: none Gynecologic history: vaginal hysterectomy, A&P repair, pubovaginal sling with mesh in 2002. 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 Dyslipidemia, goal LDL below 130 06/04/2009 Dysmenorrhea Esophageal reflux GERD Family history of colon cancer mother and grandmother + others Female stress incontinence Generalized anxiety disorder Hematuria 08/30/2006 Mixed dyslipidemia 02/12 Muscle cramp, nocturnal 07/15/2011 Other specified iron deficiency anemias 04/22 donates blood Peptic ulcer Personal history of peptic ulcer disease Plantar fibromatosis right heel spur Rectocele Rosacea 01/14/2011 Slow transit constipation 08/09/2012 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 Surgical History: Past Surgical History: Procedure Laterality Date COLONOSCOPY, DIAGNOSTIC (RECTUM) 12/09/09 normal - Dr Mcbride COLORECTAL CANCER SCREEN; COLON 06/19/04 Dr. Mcbride - [facility] CYSTOSCOPY -2006 CYSTOSCOPY -2003 FLUORO BARIUM ENEMA W AIR normal REMOVE GALLBLADDER REPAIR BLADDER DEFECT 12/12/02 pubo fascial sling/ansong SIGMOIDOSCOPY, DIAGNOSTIC normal VAGINAL HYSTERECTOMY 12/12/02 [facility] OB History 2 Para 2 Term AB Living SAB IAB Ectopic Multiple Live Births Vaginal deliveries: 2 C/S: 0 Allergies: Review of patient's allergies indicates: Allergen Reactions Protonix [Pantoprazole Sodium Sesquihydrate] Other (Please comment) Elevated BP Erythromycin hives Isoniazid hypertension Morphine And Codeine itching Active Medications: Current Outpatient Medications Medication Sig Dispense Refill MULTIVITAL PO TABS 1 daily VITAMIN D 1000 UNIT PO CAPS 1 capsule daily [address] (PREVACID) 30 MG CPDR Take 1 Cap by mouth daily. 90 Cap 1 sotalol (BETAPACE) 80 MG Tablet Take 1 Tab by mouth 2 times a day. 180 Tab 3 Aspirin 81 MG Oral Tablet Chewable (Aspirin 81) Take 1 Tablet by mouth in the morning. metFORMIN HCl 500 MG Oral Tablet (Glucophage) Take 1 Tablet by mouth 2 times a day with morning andevening meals. 1 tab with breakfast, 2 tabs with dinner Rosuvastatin Calcium 5 MG Oral Tablet (Crestor) Take 1 Tablet by mouth in the morning. dilTIAZem HCl ER Coated Beads 180 MG Oral Capsule Extended Release 24 Hour (Cardizem CD) Take 1 Capsule by mouth in the morning. Citalopram Hydrobromide 20 MG Oral Tablet (CeleXA) Take 1 Tablet by mouth in the morning. traZODone HCl 50 MG Oral Tablet (Desyrel) Take 1 Tablet by mouth at bedtime. Magnesium 250 MG Oral Tablet Take 1 Tablet by mouth in the morning. Travoprost (GERA Free) 0.004 % Ophthalmic Solution (Travatan Z) 1 Drop at bedtime. Timolol Maleate (Once-Daily) 0.5 % Ophthalmic Solution (Istalol) 1 Drop in the morning. FISH OIL CONCENTRATE 1000 MG PO CAPS 1200 mg daily (Patient not taking: Reported on 09/23/2023) CALCIUM 600/VITAMIN D 600-400 MG-UNIT PO TABS 1 a day (Patient not taking: Reported on 09/23/2023) nitroglycerin (NITROSTAT) 0.[address] 1 Tab under the tongue as needed for Pain, Chest. May repeat 3 times. If chest pain continues, call 911. 25 Tab 5 apixaban (ELIQUIS) 5 MG Tablet Take 1 Tab by mouth 2 times a day. (Patient not taking: Reported on 09/23/2023) 180 Tab 1 LORAzepam (ATIVAN) 0.5 MG Tablet Take 1 Tab by mouth at bedtime as needed for Insomnia. (Patient not taking: Reported on 09/23/2023) 30 Tab 0 No current facility-administered medications for this visit. 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 Tobacco Use Smoking status: Never Smokeless tobacco: Never Substance and Sexual Activity Alcohol use: Yes Comment: occ.wine Drug use: No Sexual activity: Yes Partners: Male Other Topics Concern Service No Blood Transfusions No Caffeine Concern No Occupational Exposure No Hobby Hazards No Sleep Concern Yes Stress Concern Yes Weight Concern Yes Special Diet No Back Care No Exercise Yes Seat Belt Yes Self-Exams Yes Social Determinants of Health Social Connections Family History: Family History Problem Relation Name Age of Onset Cancer Mother colon,dec.age 62 Cancer Grandmother (Maternal) colon Diabetes Father Stroke Father Heart Disorder Father CONSTITUTIONAL ROS: No change in weight, No weakness and No fatigue NECK ROS: No lumps or masses, PULMONARY ROS: No recent change in breathing CARDIOVASCULAR ROS: No chest pain, No shortness of breath and No dyspnea on exertion BREAST ROS: denies GASTROINTESTINAL ROS: No abdominal pain,as per HPI GENITO-URINARY FEMALE ROS: As per HPI MSK/EXTREMITIES ROS: no joint pain no joint stiffness no back pain SKIN/INTEGUMENTARY ROS: No rash and No itching NEUROLOGICAL ROS: Normal balance No weakness PSYCHIATRIC ROS: no depression and no anxiety Manager Biostatistics Documentation: Provider requested bulk truck driver Name of Manager Biostatistics: Abrilshilpa Tate Last menstrual period 10/23/2002. Blood pressure %sylvia are not available for patients who are 18 years or older. There is no height or weight on file to calculate BMI. EXAM: Well developed well nourished female in no apparent distress. Alert oriented x3 HEENT: NC AT HEART: Normal peripheral pulse, edema neg THYROID: no obvious neck mass LUNG: No increased respiratory effort ABDOMEN: Soft, NT, ND, no masses PELVIC EXAM: Ext. Gen: Normal external female genitalia, no vulvar lesions. Clitoris, labia, minor vestibular glands and urethral meatus appear normal. Urethra and bladder palpated non-tender with no masses and no expressible exudate. Vagina atrophic without lesions. Cervix: absent BIMANUAL EXAM: No adnexal masses or tenderness elicited. TUG BOAT ENGINEER: neg with empty bladder Levator ani muscle strength 3. No tenderness elicited on palpation Rectovaginal exam: perianal area normal, anus normal, digital rectal exam deferred Aa 0 Ba 0 C -1 GH 4 PB 3 TVL 9 Ap 1 Bp 1 D The following data points/ labs were reviewed: Results for orders placed or performed in visit on 02/14/15 MAGNESIUM Result Value Ref Range Magnesium 2.1 1.5 - 2.6 mg/dL PVR: 0 ml via bladder scan Records/ Imaging/ Results reviewed include: review of operative report in 2002. Impression: This is a 72 year old with: Mixed incontinence urge and stress (Primary) Rectocele Vaginal vault prolapse, posthysterectomy Cystocele, midline We reviewed therapy options including Kegel exercises/Physical therapy vs pessary therapy vs surgery. Mrs. Adrian prefers to have surgery. I further reviewed transvaginal surgery (sacrospinous ligamentsuspension, A&P repair, sling) vs robotic surgery (robotic sacral colpopexy, sling) Risks of surgery including infection, bleeding, injury, pain, mesh exposure, urinary retention were discussed. Educational materials provided. All questions answered. She would like to schedule robotic sacral colpopexy, posterior colporrhaphy, sling, and cystoscopy. Mina Contreras MD 09/23/2023 11:41 AM I spent a total of 50 minutes on the date of service in preparation, delivery, and documentation ofthe care provided to Jayleen Adrian excluding any time spent in the performance of separately billed services. documented in this encounter Nursing Notes * Yuly Koenig LPN - 09/23/2023 11:36 AM EDT New pt, presents alone. Recurrent prolapse. Repaired 2002. Leakage, urgency, frequency. documented in this encounter Plan of Treatment [...] as of this encounter Visit Diagnoses Diagnosis Mixed incontinence urge and stress- Primary Mixed incontinence urge and stress (male)(female) Rectocele Vaginal vault prolapse, posthysterectomy Prolapse of vaginal vault after hysterectomy Cystocele, midline documented in this encounter Care Teams Child Care Associate Relationship Specialty Start Date End Date Jodi Perla PA-C [address] [place] [address] [place] [address] PCP - General Physician Airplane Pilot Helper 05/23/23 documented as of this encounter
--- OUTSIDE RECORDS SUMMARY | 2023-12-17 10:48 | External Medical Summary | Summary of Care ---
Author Name Unknown Organization [facility] Address [address] [facility] [address] Phone [phone] Care Team Providers Care Shoe Parts Molder Name Role Phone Jodi Perla PA-C Primary Care Provid er Reason for Referral * Evaluate & Treat - Unlimited Visits (Within 10 days (routine)) - Authorized Specialty Diagnoses / Procedures Referred By Gavin lebron Referred To Contact Urology Diagnoses Vaginal prolapse Jodi Perla PA-C [address] [place] [id number] Referral ID Status Reason Start Date Expiration Date Visits Requested Visits Authorized [id number] Authorized Specialty Services Required 09/24/[phone] Question Answer Referral Priority Within 10 days (routine) Where should this appointment be scheduled? [facility] What is the patient being referred for? Other Conditions Comments Rectocele and cystocele-s/p repair. Patient having issues now and thinks she can feel the prolapse Encounter Details Date Type Department Care Team (Late st Contact Info) Description 09/24/2023 Orders Only Access Center, [address] Ext *DO NOT REMOVE THIS DEPARTMENT* [place] [phone] Request, External Referral Vaginal prolapse* Allergies Active Allergy Reactions Criticality Noted Date Comments Erythromycin 11/18/1999 hives Isoniazid 11/18/1999 hypertension Morphine And Codeine 11/18/1999 itching Pantoprazole Sodium Sesquihydrate Other (Please comment) Medium 05/12/2007 Elevated BP documented as of this encounter (statuses as of 09/24/2023) Medications Medication Sig Dispensed Refills Start Date [...] as of this encounter (statuses as of 09/24/2023) Active Problems Problem Noted Date Diagnosed Date [...] as of this encounter (statuses as of 09/24/2023) Resolved Problems Problem Noted Date Diagnosed Date [...] as of this encounter (statuses as of 09/24/2023) Immunizations Name Administration Dates Next Due COVID-19 mRNA, LNP-s, No Pre serve, 2-Dose Series (Actionality) 10/27/2021 COVID-19, MRNA-LNP, 23-24, P F, 30 MCG/0.3 mL, 12 YRS AND ABOVE, IM (PFIZER-Comirnaty) 12/24/2022 H1N1 2008 Influenza, IM 03/20/2009 Season Influenza, Quad, PF, [...] as of this encounter Plan of Treatment Scheduled Referrals Name Type Priority Associated Diagnoses Orde r Schedule ADULT/PEDS UROLOGY REFERRAL OP Referral Within 10 days (routine) Vaginal prolapse Ordered: 09/24/2023 Health Maintenance Due Date Last Done Comments [...] as of this encounter Visit Diagnoses Diagnosis Vaginal prolapse- Primary Unspecified prolapse of vaginal whitehead documented in this encounter Care Teams Shoe Parts Molder Relationship Specialty Start Date End Date Jodi Perla PA-C [address] [place] [address] [place] [address] PCP - General Physician Mud Jack Nozzle Worker 05/23/23 documented as of this encounter
--- OUTSIDE RECORDS SUMMARY | 2023-12-17 10:48 | External Medical Summary | Summary of Care ---
Author Name Unknown Organization [facility] Address [address] [facility] [place] [address] Phone [phone] Care Team Providers Care Audiometrist Name Role Phone Jodi Perla PA-C Primary Care Provid er Reason for Visit * Reason Comments NEW PATIENT Encounter Details Date Type Department Care Team (Late st Contact Info) Description 09/23/2023 11:25 AM EDT Office Visit Urogynecology Henrry Chin [address] [place] [address] Mina Contreras MD [address] [place] [address] Nurse Sara Chin [address] [place] [address] Mixed incontinence urge and stress*; Rectocele; Vaginal [...] mRNA, LNP-s, No Pre serve, 2-Dose Series (Interactivo) 10/27/2021 COVID-19, MRNA-LNP, 23-24, P F, 30 [...] : 1950 Surgery Date: next Physician: Diane Supervisor Electronic Coils Needed: Yes Location: [facility] Admission Type: 23 Hour Observation Anesthesia: General [...] Restrictions/Time Off: 6 weeks Procedures (CPT code): 89093 - Mid urethral sling (polypropylene mesh) 57702 - Posterior colporrhaphy [id number] - Robotic sacral colpopexy Diagnoses (ICD-10 code): [...] CANCER SCREEN; COLON 06/19/04 Dr. 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 Blood [...] EXAM: No adnexal masses or tenderness elicited. ANIMAL NURSERY WORKER: neg with empty bladder Levator ani muscle [...] in this encounter Nursing Notes * Yuly Hernandez LPN - 09/23/2023 11:36 AM EDT New pt, presents alone. Recurrent prolapse. Repaired 2002. Leakage, urgency, frequency. documented in this encounter Miscellaneous Notes * Addendum Note - Yuly Hernandez LPN - 09/23/2023 12:54 PM EDTAddended by: YULY HERNANDEZ on: 09/23/2023 12:54 PM Modules accepted: Orders documented in this encounter Plan of Treatment [...] 06/14, 02/26/2014, Additional history exists COVID-19 Vaccine (2022- [...] midline documented in this encounter Care Teams Audiometrist Relationship Specialty Start Date End Date Jodi Perla PA-C [address] [place] [address] [place] [address] PCP - General Physician Supervisor Electronic Coils 05/23/23 documented as of this encounter
--- OUTSIDE RECORDS SUMMARY | 2023-12-17 10:48 | External Medical Summary | Summary of Care ---
Author Name Unknown Organization [facility] Address [address] [facility] [address] Phone [phone] Care Team Providers Care First Grade Teacher Name Role Phone Jodi Perla PA-C Primary Care Provid er Reason for Visit * Reason Comments NEW PATIENT Encounter Details Date Type Department Care Team (Late st Contact Info) Description 09/23/2023 11:25 AM EDT Office Visit Urogynecology Henrry Chin [address] [place] [address] Mina Contreras MD [address] [place] [address] Nurse Sara Chin [address] [place] [address] Mixed incontinence urge and stress*; Rectocele; Vaginal [...] mRNA, LNP-s, No Pre serve, 2-Dose Series ([email or web address]) 10/27/2021 COVID-19, MRNA-LNP, 23-24, P F, 30 [...] : 1950 Surgery Date: next Physician: Diane Steam Box Hand Needed: Yes Location: [facility] Admission Type: 23 Hour Observation Anesthesia: General [...] Restrictions/Time Off: 6 weeks Procedures (CPT code): 96697 - Mid urethral sling (polypropylene mesh) 07200 - Posterior colporrhaphy [id number] - Robotic sacral colpopexy Diagnoses (ICD-10 code): [...] CANCER SCREEN; COLON 06/19/04 Dr. 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 Blood [...] EXAM: No adnexal masses or tenderness elicited. KEYING MACHINE OPERATOR: neg with empty bladder Levator ani muscle [...] midline documented in this encounter Care Teams First Grade Teacher Relationship Specialty Start Date End Date Jodi Perla PA-C [address] [place] [address] [place] [address] PCP - General Physician Steam Box Hand 05/23/23 documented as of this encounter
--- OUTSIDE RECORDS SUMMARY | 2023-12-17 10:48 | External Medical Summary | Summary of Care ---
Author Name Unknown Organization [facility] Address [address] [facility] [address] Phone [phone] Care Team Providers Care Custom Tailor Name Role Phone Jodi Perla PA-C Primary Care Provid er Reason for Visit * Reason Comments NEW PATIENT Encounter Details Date Type Department Care Team (Late st Contact Info) Description 09/23/2023 11:25 AM EDT Office Visit Urogynecology Henrry Chin [address] [place] [address] Mina Contreras MD [address] [place] [address] Nurse Sara Chin [address] [place] [address] Mixed incontinence urge and stress*; Rectocele; Vaginal [...] mRNA, LNP-s, No Pre serve, 2-Dose Series ([employer]) 10/27/2021 COVID-19, MRNA-LNP, 23-24, P F, 31 [...] : 1950 Surgery Date: next Physician: Diane Enrober Needed: Yes Location: [facility] Admission Type: 23 Hour Observation Anesthesia: General [...] Restrictions/Time Off: 6 weeks Procedures (CPT code): 29562 - Mid urethral sling (polypropylene mesh) 37306 - Posterior colporrhaphy [id number] - Robotic sacral colpopexy Diagnoses (ICD-10 code): [...] CANCER SCREEN; COLON 06/19/04 Dr. 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 Blood [...] EXAM: No adnexal masses or tenderness elicited. DOUGH BRAKER: neg with empty bladder Levator ani muscle [...] documented in this encounter Plan of Treatment Scheduled Orders Name Type Priority Associated Diagnoses Orde r Schedule URINALYSIS, REFLEX TO CULTURE (NOT FOR NEUTROPENIC PATIENTS) Lab Routine Mixed incontinence urge and stress Ordered: 09/23/2023 Health Maintenance Due Date Last Done Comments [...] midline documented in this encounter Care Teams Custom Tailor Relationship Specialty Start Date End Date Jodi Perla PA-C [address] [place] [address] PCP - General Physician Enrober 05/23/23 documented as of this encounter
--- OUTSIDE RECORDS SUMMARY | 2023-12-17 10:48 | External Medical Summary | Summary of Care ---
Author Name Unknown Organization [facility] Address [address] [facility] [place] [address] Phone [phone] Care Team Providers Care Casino Floor Person Name Role Phone Jodi Perla PA-C Primary Care Provid er Reason for Visit * Reason Onset Date Comments Appointment 07/02/2023 Encounter Details Date Type Department Care Team (Late st Contact Info) Description 07/02/2023 Telephone Urogynecology [facility] [address] [place] [address] Mina Contreras MD [address] [place] [address] Appointment Allergies Active Allergy Reactions Criticality Noted Date Comments Erythromycin 11/18/1999 hives Isoniazid 11/18/1999 hypertension Morphine And Related 11/18/1999 itching Pantoprazole Sodium Sesquihydrate Other (Please comment) Medium 05/12/2007 Elevated BP documented as of this encounter (statuses as of 07/09/2023) Medications Medication Sig Dispensed Refills Start Date End Date Status MULTIVITAL PO TABS 1 daily 0 Active FISH OIL CONCENTRATE 1000 MG PO CAPS 1200 mg daily 0 Active VITAMIN D 1000 UNIT PO CAPSIndications:Disorde r of bone and cartilage 1 capsule daily 0 07/09/2010 Active CALCIUM 600/VITAMIN D 600-400 MG-UNIT PO TABS 1 a day 0 A ctive nitroglycerin (NITROSTAT) 0.4 MG SUBLIndications:Typical atrial flutter (HCC) Place 1 Tab under the tongue as needed for Pain, Chest. May repeat 3 times. If chest pain continues, call 911. 25 Tab 5 01/23/2015 Active apixaban (ELIQUIS) 5 MG TabletIndications:Typic al atrial flutter (HCC) Take 1 Tab by mouth 2 times a day. 180 Tab 1 01/23/[address] (PREVACID) 30 MG CPDR Take 1 Cap by mouth daily. 90 Cap 1 01/29/2015 Active sotalol (BETAPACE) 80 MG TabletIndications:Parox ysmal atrial fibrillation (HCC) Take 1 Tab by mouth 2 times a day. 180 Tab 3 02/06/2015 Active LORAzepam (ATIVAN) 0.5 MG TabletIndications:Insom adriana secondary to anxiety Take 1 Tab by mouth at bedtime as needed for Insomnia. 30 Tab 0 02/27/2015 Active documented as of this encounter (statuses as of 07/09/2023) Active Problems Problem Noted Date Diagnosed Date [...] as of this encounter (statuses as of 07/09/2023) Resolved Problems Problem Noted Date Diagnosed Date [...] as of this encounter (statuses as of 07/09/2023) Immunizations Name Administration Dates Next Due COVID-19 mRNA, LNP-s, No Pre serve, 2-Dose Series ([employer]) 10/27/2021 COVID-19, MRNA-LNP, 23-24, P F, 30 [...] ,01/19/2006,01/23/2005,02/06/2003,12/14,02/08/2001 01/04/2003 TD - Tetanus/Diptheria (ADULT) 09/04/1997 TDAP (age 11 and older)(Adacel) 11/10/2007 Varicella Zoster Vaccine (Adult) 10/02/2013 documented [...] on file Sexual Orientation Not on file documented as of this encounter Miscellaneous Notes * Telephone Encounter - Nilsa Miller OSA - 07/09/2023 3:00 PM EDT 07/07/2023 pt left message stating she received two calls from our office and would like to schedulean appt Scheduling offered September appt on 07/08/2023 * Telephone Encounter - Amparo Salmeron OSA - 07/02/2023 3:53 PM EDT Left voicemail for pt to return call to scheduling line. New Urogyn patient, okay to schedule without referral * Telephone Encounter - Amparo Salmeron OSA - 07/02/2023 3:52 PM EDT ----- Message from Mina Contreras MD sent at 07/01/2023 3:05 PM EDT ----- Regarding: RE: Requesting Appointment with Urogyn Yes, the patient is having vaginal prolapse on the referral, better as a Urogyn referral. Thanks Sebastian ----- Message ----- From: Amparo Salmeron OSA Sent: 07/01/2023 2:41 PM EDT To: Mina Contreras MD Subject: Requesting Appointment with Urogyalycia Contreras, I'm the new par at [facility] in UROGYN. Urology sent message stating this patient is more appropriate for Urogyn, could you review the chart and let me know if this is something you will see. Thank you, Amparo Salmeron documented in this encounter Plan of Treatment Upcoming Encounters Date Type Department Care Team (Late st Contact Info) Description 09/23/2023 11:25 AM EDT Office Visit Urogynecology Henrry Chin [address] [place] [address] Mina Contreras MD [address] [place] [address] Nurse Sara Chin [address] [place] [address] Health Maintenance Due Date Last Done Comments [...] 01/09/2020 01/08/2015, 06/14, 02/26/2014, Additional history exists Hepatitis B Completed 03/06/1998, 09/13, 09/04/1997 COVID-19 Vaccine Completed 12/24/2022, 10/27/2021 Influenza Vaccine (FLU shot) Completed 02/2023, 12/18/2021, 01/16/2015, Additional history exists GARDASIL-HPV IMMUNIZATION SERIES Aged Out No longer eligible based on patient's age to complete this topic MENINGOCOCCAL (MENACTRA/MENVEO) Aged Out No longer eligible based on patient's age to complete this topic documented as of this encounter Medical Devices Not on filedocumented as of this encounter Care Teams Casino Floor Person Relationship Specialty Start Date End Date Jodi Perla PA-C [address] [place], [place] [address] [address] PCP - General Physician Power Supply Engineer 05/23/23 documented as of this encounter
--- OUTSIDE RECORDS SUMMARY | 2023-12-17 10:48 | External Medical Summary | Summary of Care ---
Author Name Unknown Organization [facility] Address [address] [facility] [address] Phone [phone] Care Team Providers Care Boning Room Worker Name Role Phone Jodi Perla PA-C Primary Care Provid er Reason for Visit * Reason Comments NEW PATIENT Encounter Details Date Type Department Care Team (Late st Contact Info) Description 09/23/2023 11:25 AM EDT Office Visit Urogynecology Henrry Chin [address] [place] [address] Mina Contreras MD [address] [place] [address] Nurse Sara Chin [address] [place] [address] Mixed incontinence urge and stress*; Rectocele; Vaginal [...] mRNA, LNP-s, No Pre serve, 2-Dose Series ([employer]) 10/27/2021 COVID-19, MRNA-LNP, 23-24, P F, 31 [...] : 1950 Surgery Date: next Physician: Diane Corn Shredder Needed: Yes Location: [facility] Admission Type: 23 Hour Observation Anesthesia: General [...] Restrictions/Time Off: 6 weeks Procedures (CPT code): 50343 - Mid urethral sling (polypropylene mesh) 74724 - Posterior colporrhaphy [id number] - Robotic sacral colpopexy Diagnoses (ICD-10 code): [...] CANCER SCREEN; COLON 06/19/04 Dr. 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 Blood [...] EXAM: No adnexal masses or tenderness elicited. TIMBER DEADENER: neg with empty bladder Levator ani muscle [...] Mixed incontinence urge and stress Ordered: 09/23/2023 URINALYSIS, REFLEX TO CULTURE (CUP ONLY) Lab Routine Mixed incontinence urge and stress Ordered: 09/23/2023 URINALYSIS, REFLEX TO CULTURE Lab Routine Mixed incontinence urge and stress [...] 09/09/2009, 04/09/2007, 05/29/2005 Lipid Panel 01/09/2020 01/08/2015, 06/14, 02/26/2014, [...] midline documented in this encounter Care Teams Boning Room Worker Relationship Specialty Start Date End Date Jodi Perla PA-C [address] [place] [address] PCP - General Physician Corn Shredder 05/23/23 documented as of this encounter
--- OUTSIDE RECORDS SUMMARY | 2023-12-17 10:48 | External Medical Summary | Summary of Care ---
Author Name Unknown Organization [facility] Address [address] [facility] [place] [address] Phone [phone] Care Team Providers Care Leaf Conditioner Name Role Phone Jodi Perla PA-C Primary Care Provid er Reason for Visit * Reason Comments NEW PATIENT Encounter Details Date Type Department Care Team (Late st Contact Info) Description 09/23/2023 11:25 AM EDT Office Visit Urogynecology Henrry Chin [address] [place] [address] Mina Contreras MD [address] [place] [address] Nurse Sara Chin [address] [place] [address] Mixed incontinence urge and stress*; Rectocele; Vaginal [...] mRNA, LNP-s, No Pre serve, 2-Dose Series ([employer]) 10/27/2021 COVID-19, MRNA-LNP, 23-24, P F, 31 [...] : 1950 Surgery Date: next Physician: Diane Veterinary Dentist Needed: Yes Location: [facility] Admission Type: 23 Hour Observation Anesthesia: General [...] Restrictions/Time Off: 6 weeks Procedures (CPT code): 54640 - Mid urethral sling (polypropylene mesh) 93017 - Posterior colporrhaphy [id number] - Robotic sacral colpopexy Diagnoses (ICD-10 code): [...] CANCER SCREEN; COLON 06/19/04 Dr. 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 [...] EXAM: No adnexal masses or tenderness elicited. STONE DRILLER: neg with empty bladder Levator ani muscle [...] midline documented in this encounter Care Teams Leaf Conditioner Relationship Specialty Start Date End Date Jodi Perla PA-C [address] [place] [address] [place] [address] PCP - General Physician Veterinary Dentist 05/23/23 documented as of this encounter
--- NOTE | 2023-12-17 11:55 | Anesthesiology Progress Note ---
Date of Service December 17, 2023 Anesthesia Post Procedure Vital Signs Vital Signs: Temp Pulse Pulse Resp BP BP Pulse Ox 12/17/23 10:55 36.6 C 54 L 16 131/60 95 12/17/23 10:45 36.4 C L 55 L 16 125/56 L 95 12/17/23 10:35 56 L 18 126/55 L 96 12/17/23 10:25 55 L 16 127/55 L 97 12/17/23 10:15 59 L 18 129/56 L 94 12/17/23 10:05 36.5 C 60 15 159/63 H 95 12/17/23 06:41 37.1 C 60 18 137/75 95 O2 Del Method O2 Flow Rate 12/17/23 10:55 Nasal Cannula 2 12/17/23 10:45 Nasal Cannula 2 12/17/23 10:35 Oxymask 2 12/17/23 10:25 Oxymask 4 12/17/23 10:15 Oxymask 4 12/17/23 10:05 Oxymask 6 12/17/23 06:41 Room Air Transfer of Care Handoff Completed per policy Notes Mental Status: alert / awake / arousable and participated in evaluation Patient Amnestic to Procedure: Yes Nausea / Vomiting: adequately controlled Pain: adequately controlled Airway Patency, RR, SpO2: stable & adequate BP & HR: stable & adequate Hydration State: stable & adequate Anesthetic Complications: no major complications apparent and Pt Satisfied with anesthetic care
[2023-12-17] MEDS: SODIUM CHLORIDE 0.9% 1,000 ML IV SCH (12:03)
[2023-12-17] MEDS: metFORMIN HCL 500 MG TAB PO SCH (17:29)
[2023-12-17] MEDS: ACETAMINOPHEN 325 MG TAB PO PRN (20:06)
[2023-12-17] MEDS: COUGH DROP (SUGAR FREE) LOZ 24 LOZ/1 BOX BUCCAL STA (21:11)
[2023-12-17] MEDS: SOTALOL HCL 80 MG TAB PO SCH (21:12)
[2023-12-17] MEDS: traZODone HCL 50 MG TAB PO SCH (21:13)
[2023-12-17] MEDS: ROSUVASTATIN CALCIUM 5 MG TAB PO SCH (21:13)
[2023-12-17 23:29] VITALS: RESP 18
[2023-12-18] MEDS: KETOROLAC TROMETHAMINE 15 MG/ML VIAL IV PRN (00:27)
[2023-12-18 04:43] VITALS: O2SAT 95
[2023-12-18 06:19] LABS: Basophils # (auto) 0.01 K/uL (0.00-0.20); Basophils % (auto) 0.1 %; Hematocrit (blood only) 34.3 % (37.0-47.0); Hemoglobin 11.1 g/dl (12.0-16.0); Immature Granulocytes # (auto) 0.05 K/uL (0.01-0.20); Immature Granulocytes % (auto) 0.5 %; Lymphocytes # (auto) 0.72 K/uL (1.20-3.40); Mean Corpuscular Hemoglobin 27.4 pg (25.0-34.0); Mean Corpuscular Hgb Conc 32.4 g/dL (32.0-36.0); Mean Corpuscular Volume 84.7 fL (80.0-100.0); Mean Platelet Volume 10.5 fL (9.4-12.4); Monocytes # (auto) 0.52 K/uL (0.11-0.59); Monocytes % (auto) 5.1 %; Neutrophils # (auto) 8.92 K/uL (1.40-6.50); Neutrophils % (auto) 87.3 %; Platelet Count 161 K/uL (130-400); RDW Coefficient of Variation 13.7 % (11.5-14.5); RDW Standard Deviation 42.7 fL (36.4-46.3); Red Blood Count 4.05 M/uL (4.20-5.40); White Blood Count 10.22 K/ul (4.8-10.8)
[2023-12-18 06:30] LABS: BUN Creatinine Ratio 17.5 (10-20); Calcium 8.3 mg/dl (8.6-10.3); Creatinine Clr Calc Pharmacy 63.7 ml/min; Potassium 4.5 mmol/L (3.5-5.1)
[2023-12-18] MEDS: dilTIAZem HCL 180 MG CAPCR PO SCH (07:40)
[2023-12-18] MEDS: PANTOprazole 40 MG TAB PO SCH (07:41)
[2023-12-18 08:18] VITALS: BP 122/71; TEMP 98.6
[2023-12-18] MEDS: metFORMIN HCL 500 MG TAB PO SCH (08:25)
[2023-12-18] MEDS: DOCUSATE SODIUM 100 MG CAP PO SCH (08:25)
--- NOTE | 2023-12-18 08:44 | Progress Note ---
Date of Service December 18, 2023 Assessment & Plan (1) Vaginal vault prolapse, posthysterectomy: Plan: POD#1 s/p robotic sacral colpopexy, BSO, cystoscopy Recovering well. Discharge instructions reviewed Follow up in in 10 days for video visit and 6 weeks for post op visit. All questions answered. Present on Admission?: Yes Admission and Anticipated Discharge Date Admission Date: December 17, 2023 Anticipated date of discharge: 12/18/23 Subjective Feeling well. Pain well controlled. Denies SOB, CP, or nausea Review of Systems Review of Systems: All systems reviewed & are unremarkable except as noted in HPI & below Physical Exam Constitutional: WD/WN, vitals as above Neck: trachea midline, no thyromegaly Respiratory: normal respiratory effort Cardiovascular: Rate/Rhythm: regular rate Gastrointestinal (Abdomen): normal bowel sounds, soft, nontender, no hepatosplenomegaly Musculoskeletal: Non tender calves, neg edema Skin: mild rash from tape Psychiatric: A+Ox3, euthymic affect Genitourinary: Vaginal packing removed, dry Results & Data Vital Signs (Past 12 Hours) Vital Signs Temp Pulse Resp BP Pulse Ox O2 Del Method 12/18/23 07:30 37.0 C 70 18 122/71 95 Room Air 12/18/23 03:00 36.9 C 63 18 145/73 H 95 Room Air 12/17/23 23:26 37 C 69 18 142/60 H 94 Room Air Laboratory Results CBC and BMP reviewed and unremarkable.
[2023-12-18 08:51] VITALS: PULSE 63
--- NOTE | 2023-12-18 08:52 | Discharge Summary ---
Date of Service December 18, 2023 Admission HPI Per Admitting Provider Jayleen Adrian is a 72 year old female P 2 with recurrent prolapse. Jayleen Adrian complains of feeling a bulge starting in December 2022. She also complains of mixed urinary incontinence. She has frequency and urgency every few hours. She awakens 2-3 times a night to void. She has urge incontinence if she can't reach the bathroom in time. She also has DOMITILA with coughing and sneezing. Urinary: Leakage: mixed Has leakage daily Wears pads: yes She has occasional sense of incomplete bladder emptying. Prior/current treatment include: Vaginal hysterectomy, A&P repair, pubovaginal sling with mesh UTI: denies Voiding detail: Daytime frequency: every 2 hours Urgency yes Nocturia:2-3 times Hesitancy no Straining no Hematuria no Postvoid dribbling no Postvoid urgency no Manual reduction no Prolapse: She admits a palpable bulge. Her bulge symptoms have worsened over the last 8 months Prior/ current treatments include vaginal hysterectomy, A&P repair, pubovaginal sling with mesh in 2002 GI: Bowel habits: normal bowel movement She denies fecal incontinence. Prior/ current treatments include: none Admission Exam (Per Admitting) Constitutional WD/WN, vitals as above Eyes PERRL, conjunctivae normal, anicteric sclerae Neck trachea midline, no thyromegaly Respiratory normal respiratory effort Cardiovascular Rate/Rhythm: regular rate Gastrointestinal (Abdomen) normal bowel sounds, soft, nontender, no hepatosplenomegaly Musculoskeletal no cyanosis or clubbing, extremities motor strength 5/5 Skin no rashes, warm and dry Psychiatric A+Ox3, euthymic affect Discharge Data Procedures Performed Operation Date: 12/17/23 07:30 Actual Procedures p Robotic Assisted Sacral Colpopexy, Cystoscopy, Removal of bilateral tubes and bilatera ovaries(Not Applicable) - Mina Contreras MD Hospital Course (1) Vaginal vault prolapse, posthysterectomy: POD#1 s/p robotic sacral colpopexy, BSO, cystoscopy Recovering well. Discharge instructions reviewed Follow up in in 10 days for video visit and 6 weeks for post op visit. All questions answered.
--- OUTSIDE RECORDS SUMMARY | 2023-12-18 08:54 | External Medical Summary | Summary of Care ---
Author Name Unknown Organization [facility] Address [address] [facility] [place] [address] Phone [phone] Care Team Providers Care Sand Mixer Machine Name Role Phone Jodi Perla PA-C Primary Care Provid er Encounter Details Date Type Department Care Team (Late st Contact Info) Description 12/17/2023 Result Scan Unspecified Department <No scans attached> Allergies Active Allergy Reactions Criticality Noted Date Comments Erythromycin 11/18/1999 hives Isoniazid 11/18/1999 hypertension Morphine And Codeine 11/18/1999 itching Pantoprazole Sodium Sesquihydrate Other (Please comment) Medium 05/12/2007 Elevated BP documented as of this encounter (statuses as of 12/17/2023) Medications Medication Sig Dispensed Refills Start Date [...] as of this encounter (statuses as of 12/17/2023) Active Problems Problem Noted Date Diagnosed Date [...] as of this encounter (statuses as of 12/17/2023) Resolved Problems Problem Noted Date Diagnosed Date [...] as of this encounter (statuses as of 12/17/2023) Immunizations Name Administration Dates Next Due COVID-19 mRNA, LNP-s, No Pre serve, 2-Dose Series ([employer]) 10/27/2021 COVID-19, MRNA-LNP, 23-24, P F, 30 MCG/0.3 mL, 12 YRS AND ABOVE, IM (Xpreso-Comirnat) 12/24/2022 H1N1 2009 Influenza, IM 03/20/2009 Season Influenza, Quad, PF, Adjuvanted, 65+ Yrs, IM (FLUAD) 12/24/2022 Seasonal Influenza Vac., MDV , IM, 0.5 mL (Fluzone) 01/16/2015,12/20/2013,01/03/2013,2011,01/14/2011,01/01/2010,01/13/2009,1 03/21/2005 Seasonal Influenza, Quadriva lent Hd (Fluzone Hd) 12/18/2021 TDAP, Age 7 and older, IM (Adacel) [...] Description 12/29/2023 8:00 AM EDT Telemedicine Urogynecology [facility] [address] [place] [address] Mina Contreras MD [address] [place] [address] 02/02/2024 11:20 AM EST Office Visit Urogynecology [facility] [address] [place] [address] Mina Contreras MD [address] [place] [address] Health Maintenance Due Date Last Done Comments [...] 04/0 09/2007, 05/29/2005 Lipid Panel 01/09/2020 01/08/2015, 2 10/2014, [...] Not on filedocumented as of this encounter Procedures Procedure Name Priority Date/Time Associated Diagnosis Comments OUTSIDE LAB RESULTS 12/17/2023 documented in this encounter Results * OUTSIDE LAB RESULTS (12/17/2023) 12/17/2023 No Physician Data Unknown LABORATORY documented in this encounter Care Teams Sand Mixer Machine Relationship Specialty Start Date End Date Jodi Perla PA-C [address] [place] [address] [place] [address] PCP - General Physician Shellac Polisher 05/23/23 documented as of this encounter
== END 2023-12-18 10:08 | disposition home or self-care (01) ==
LOC: 4E1 05:36 → ASU 05:36